=== PATIENT | male | born 1955 | race Hispanic/Latino ===

== ENCOUNTER 2018-05-09 11:16 | Inpatient (IN) | payer SELFPAY ==
[2018-05-09] MEDS ORDERED: Lorazepam 2 MG/ML VIAL ONE (11:18)
[2018-05-09 12:01] LABS: Band 28 % (5-11); Hemoglobin 13.4 g/dL (14.0-18.0); Lymphocytes 6 % (21-51); MDiff Complete? YES; Mean Corpuscular HGB CONC 32.2 g/dL (32.0-36.0); Mean Corpuscular Hemoglobin 29.8 pg (27.0-31.0); Mean Corpuscular Volume 92.4 fL (78.0-98.0); Mean Platelet Volume 8.3 fL (7.4-10.4); Monocytes 2 % (0-10); Neutrophil 63 % (42-75); Platelet Count 145 thou/uL (130-400); RBC Distribution Width 13.9 % (11.5-14.5); Red Blood Cell (RBC) Count 4.49 mill/uL (4.70-6.10); Vacuoles SLIGHT; White Blood Cell (WBC) Count 5.6 thou/uL (4.8-10.8)
[2018-05-09 12:13] LABS: ALT (SGPT) 23 U/L (8-55); AST (SGOT) 38 U/L (5-34); Albumin 3.7 g/dL (3.4-4.8); Alkaline Phosphatase 204 U/L (40-150); Anion Gap 22 mmol/L (10-20); BUN (Urea Nitrogen) 16 mg/dL (8.4-25.7); Bilirubin, Total 2.5 mg/dL (0.2-1.2); Calc. Creatinine Clearance 0 mL/min (70-130); Calcium 8.6 mg/dL (7.8-10.44); Carbon Dioxide 18 mmol/L (23-31); Chloride 98 mmol/L (98-107); Estimated GFR-MDRD 57; Globulin 3.9 g/dL (2.4-3.5); Glucose 219 mg/dL (80-115); Potassium 5.2 mmol/L (3.5-5.1); Protein, Total 7.6 g/dL (5.8-8.1); Sodium 133 mmol/L (136-145)
--- NOTE | 2018-05-09 12:28 | RAD ---
CHEST 1 VIEW: Date: 05/09/18 HISTORY: Tremors, heavy alcohol use, elevated blood sugar. COMPARISON: 01/18/16. FINDINGS: Postop midline sternotomy. Bilateral vascular congestion with some interstitial changes in the perihi lar regions concerning for mild edema. No new confluent process. IMPRESSION: Mild cardiomegaly with bilateral vascular congestion and minimal interstitial edema. No confluent lob ar pneumonia. POS: H
[2018-05-09] MEDS ORDERED: Acetaminophen 500 MG TAB ONE (12:39)
[2018-05-09 12:51] LABS: Bilirubin Small (Negative); Blood, Urine Moderate (Negative); Clarity CLOUDY (Clear); Glucose, Urine (Dipstick) Negative (Negative); Leukocyte Large (Negative); Nitrite Negative (Negative); Protein, Urine (Dipstick) 100 mg/dL (Neg-Trace); pH, Urine 5.5 (5.0-9.0)
[2018-05-09 12:53] LABS: Bacteria/HPF 4+ HPF (None Seen); Hyaline Casts/LPF 4-6 HYALINE CAST LPF (0-3 Hyaline); Pathc Cast-AUWi Flag 1.66 (0-2.49); Squamous Epithelial None Seen HPF (0-3)
[2018-05-09] MEDS ORDERED: cefTRIAXone\\ROCEPHIN 1 GM VIAL ONE (13:21)
[2018-05-09] MEDS ORDERED: Ketorolac Tromethamine 30 MG/ML VIAL ONE (13:21)
[2018-05-09] MEDS ORDERED: Magnesium 2 GM/50 ML BAG (IN WATER) ONE (13:57)
[2018-05-09] MEDS ORDERED: Folic Acid 1 MG TAB PO SCH (14:15)
[2018-05-09] MEDS ORDERED: Folic Acid 1 MG TAB ONE (15:15)
[2018-05-09 15:47] LABS: Lactic Acid 1.3 mmol/L (0.5-2.2)
[2018-05-09] MEDS ORDERED: Diazepam 5 MG TAB ONE ×2 (16:20→17:36)
[2018-05-09] MEDS ORDERED: Thiamine HCl 200 MG/2 ML VIAL IM SCH (17:00)
[2018-05-09 18:44] VITALS: BMI 23.8
[2018-05-09] MEDS ORDERED: Sodium Chloride 0.9% 1,000 ML IV SCH (19:00)
[2018-05-09] MEDS ORDERED: Acetaminophen 325 MG TAB PO PRN (19:01)
[2018-05-09] MEDS ORDERED: Ondansetron ODT 4 MG TAB SL PRN (19:01)
[2018-05-09] MEDS ORDERED: Ondansetron PF 4 MG/2 ML Vial IVP PRN ×2 (19:01→19:22)
[2018-05-09] MEDS ORDERED: Diazepam 5 MG TAB PO PRN (19:02)
--- NOTE | 2018-05-09 19:21 | HP ---
PRIMARY CARE PROVIDER: [facility]. CHIEF COMPLAINT: Tremors and general weakness. HISTORY OF PRESENT ILLNESS: This is a 62-year-old male, who presents to [facility] Emergency Department complaining of less than 24-hour history of tremors and sweating, which began in the early intervention school psychologist hours on the date of admission. The patient states he had been drinking alcohol up to 10 beers when he developed nausea and vomiting approximately 4:00 a.m. on 05/09/2018. The patient became concerned when he had profuse sweating and tremulousness of his upper and lower extremities. The patient denied any recent travel history, family members with similar symptoms, or known prior history of alcohol withdrawal. The patient became concerned due to his symptoms and presented to the emergency room for evaluation. The patient denied any other drug use or exposure history or change to his chronic medication regimen. In the emergency room, the patient underwent general evaluation including screening metabolic survey showing evidence of lactic acidosis as well as questionable urinary tract infection by screening urinalysis. Plasma alcohol level was noted less than 10; however, the patient did receive intravenous normal saline as well as Ativan and magnesium sulfate. The patient also received a thiamin and Toradol as well as acetaminophen. After concerning for potential infectious process, the patient received vancomycin and Rocephin due to suspected urinary tract infection. The patient currently states he is feeling fine and is ready to eat. PAST MEDICAL HISTORY: 1. Diabetes mellitus type 2, poorly controlled. 2. Hypertension. 3. Tobacco abuse. 4. Alcohol abuse. 5. History of TIA. 6. Depression. PAST SURGICAL HISTORY: Status post appendectomy. CURRENT MEDICATIONS: Based on previous electronic medical record review; 1. Enteric-coated aspirin 325 mg p.o. daily. 2. Coreg 3.125 mg p.o. b.i.d. 3. Metformin 1000 mg p.o. b.i.d. 4. Zocor 40 mg p.o. at bedtime. ALLERGIES: NO KNOWN DRUG ALLERGIES. FAMILY HISTORY: Positive for coronary artery disease and hypertension. SOCIAL HISTORY: The patient is accompanied by his significant other in the emergency room. Smokes up to a pack of cigarettes daily. Alcohol use up to 12 pack every 2 to 3 days. No illicit drug use. Last alcohol intake within the last 24 hours. REVIEW OF SYSTEMS: CONSTITUTIONAL: Negative for weight loss or gain, ability to conduct usual activities. SKIN: Negative for rash, itching. EYES: Negative for double vision, pain. ENT/MOUTH: Negative for nose bleeding, neck stiffness, pain, tenderness. CARDIOVASCULAR: Negative for palpitations, dyspnea on exertion, orthopnea. RESPIRATORY: Negative for shortness of breath, wheezing, cough, hemoptysis, fever or night sweats. GASTROINTESTINAL: Negative for poor appetite, abdominal pain, heartburn, nausea, vomiting, constipation, or diarrhea. GENITOURINARY: Negative for urgency, frequency, dysuria, nocturia. MUSCULOSKELETAL: Negative for pain, swelling. NEUROLOGIC/PSYCHIATRIC: Negative for anxiety, depression. ALLERGY/IMMUNOLOGIC: Negative for skin rash, bleeding tendency. Otherwise, negative except as stated per HPI. PHYSICAL EXAMINATION: VITAL SIGNS: On admission, blood pressure 98/66, pulse 90, respiratory rate 22, temperature 98 degrees Fahrenheit, T-max of 102.6 degrees Fahrenheit, and O2 saturation 93% on room air. GENERAL APPEARANCE: This is a 62-year-old male, alert and oriented x3, pleasant, in no acute distress. HEENT: Pupils are equal, round, reactive to light and accommodation. Extraocular muscles are intact. No scleral icterus. Mild conjunctival injection. Nares patent. OP is clear. Teeth in fair repair. NECK: Supple. No cervical adenopathy. No thyromegaly. No carotid bruits. No JVD appreciated. Cervical spine with full active and passive range of motion. No meningeal signs appreciated. CHEST: Lungs are clear to auscultation bilaterally. CARDIOVASCULAR: S1 and S2 without noted murmur, rub, or gallop. ABDOMEN: Obese, soft, and mild tenderness to palpation in the upper quadrants. No palpable mass. No rebound or guarding noted. Bowel sounds are positive in all 4 quadrants. EXTREMITIES: Warm and dry with fair turgor. No clubbing, cyanosis, or asymmetric edema appreciated. Pulses are palpable distally at the dorsalis pedis, posterior tibial, and popliteal arteries bilaterally. Capillary refill less than 2 seconds. NEUROLOGIC: Cranial nerves 2 through 12 are grossly intact. No focal or lateralizing signs appreciated. PERTINENT LABORATORY DATA AND X-RAY FINDINGS: Sodium 133, potassium 5.2, chloride 98, CO2 of 18, BUN 16, creatinine 1.27, estimated GFR 57, glucose 219. Lactic acid level ranged between 1.3 to 8.7. Total bilirubin 2.5, AST 38, ALT 23, alkaline phosphatase 204. CBC showed a white blood cell count of 5.6, hemoglobin 13.4, hematocrit 41.5, platelet count 145, with 63% neutrophils, 28% bands. Urinalysis showed moderate blood, trace ketones, large leukocyte esterase with greater than 50 to [id number]-count wbc's per high-power field. Plasma alcohol level less than 10. Influenza A and B antigen dated 05/09/2018, negative. Portable chest x-ray dated 05/09/2018, by my interpretation shows bilateral vascular prominence. EKG dated 05/09/2018, by my interpretation shows sinus tachycardia, heart rates in the 140s. Attenuated R-waves noted in the precordial leads. Left axis deviation noted. Baseline artifact noted. ASSESSMENT AND PLAN: 1. Acute alcohol abuse. The patient will be admitted to the telemetry unit. We will continue to monitor for withdrawal symptoms. Ativan 1 mg IV q.6 hours p.r.n. withdrawal symptoms. Continue banana bag at 125 mL/h. Alcohol abstinence resources. 2. Urinary tract infection. Suspected after review of the initial urinalysis. Continue Rocephin 2 g IV q.24 hours. Await final urine culture. 3. Hypotension. Suspect secondary to volume depletion. Continue IV fluids with normal saline at 125 mL/h. Encourage increased free water intake orally. 4. Acute kidney injury. Suspect secondary to volume depletion. We will continue IV fluids as outlined previously. Avoid nephrotoxic agents and limit contrast exposure. Repeat creatinine in the a.m. 5. Hyperkalemia, mild. We will continue IV fluids as outlined previously. Avoid potassium chloride supplementation. Repeat potassium level in the a.m. 6. Diabetes mellitus, type 2. Appears uncontrolled currently. Insulin sliding scale for reflexive coverage. Accu-Cheks a.c. and at bedtime. ADA diet. Check A1c level in the a.m. 7. Prophylaxis. SCDs while in bed. Pepcid 20 mg p.o. b.i.d.. 8. Code status is full. Surrogate medical decision maker is the patient's spouse. Job ID: [id number]
[2018-05-09] MEDS ORDERED: Dextrose 5% in Water 1,000 ML IV PRN (19:22)
[2018-05-09] MEDS ORDERED: HumaLOG 300 UNITS/3 ML VIAL SC PRN ×2 (19:22)
[2018-05-09] MEDS ORDERED: Lorazepam 2 MG/ML VIAL SLOW IVP PRN (19:22)
[2018-05-09] MEDS ORDERED: Acetaminophen 500 MG TAB PO PRN (19:22)
[2018-05-09] MEDS ORDERED: Ibuprofen 200 MG TAB PO PRN (19:22)
[2018-05-09] MEDS ORDERED: hydrALAZINE 20 MG/ML VIAL SLOW IVP PRN (19:22)
[2018-05-09] MEDS ORDERED: cloNIDine 0.1 MG TAB PO PRN (19:22)
[2018-05-09] MEDS ORDERED: Dextrose 50% Abboject 50 ML SYRINGE SLOW IVP PRN (19:22)
[2018-05-09] MEDS ORDERED: Ondansetron ODT 4 MG TAB PO PRN (19:22)
[2018-05-09] MEDS ORDERED: Multivitamins, Adult 10 ML, Folic Acid 1 MG, Thiamine HCl 100 MG in Dextrose 5 %-0.45 %... IV SCH (20:00)
[2018-05-09] MEDS: Famotidine 20 MG TAB PO SCH (21:43)
[2018-05-09] MEDS: Nicotine 14 MG PATCH TOP PRN (21:43)
[2018-05-09] MEDS: Sodium Chloride 0.9% 1,000 ML IV SCH (22:20)
[2018-05-10] MEDS ORDERED: Diazepam 5 MG TAB PO PRN (04:00)
[2018-05-10] MEDS: Sodium Chloride 0.9% 1,000 ML IV SCH (05:53)
[2018-05-10 06:23] LABS: ALT (SGPT) 24 U/L (8-55); AST (SGOT) 32 U/L (5-34); Albumin 3.3 g/dL (3.4-4.8); Alkaline Phosphatase 185 U/L (40-150); Anion Gap 15 mmol/L (10-20); BUN (Urea Nitrogen) 24 mg/dL (8.4-25.7); Bilirubin, Total 3.4 mg/dL (0.2-1.2); Calc. Creatinine Clearance 58 mL/min (70-130); Carbon Dioxide 19 mmol/L (23-31); Chloride 100 mmol/L (98-107); Estimated GFR-MDRD 50; Glucose 240 mg/dL (80-115); Magnesium 1.9 mg/dL (1.6-2.6); Phosphorus 2.7 mg/dL (2.3-4.7); Potassium 4.2 mmol/L (3.5-5.1); Protein, Total 6.3 g/dL (5.8-8.1); Sodium 130 mmol/L (136-145)
[2018-05-10 06:41] LABS: Band 12 % (5-11); Hemoglobin 11.8 g/dL (14.0-18.0); Lymphocytes 4 % (21-51); MDiff Complete? YES; Mean Corpuscular HGB CONC 32.4 g/dL (32.0-36.0); Mean Corpuscular Hemoglobin 30.1 pg (27.0-31.0); Mean Corpuscular Volume 92.9 fL (78.0-98.0); Mean Platelet Volume 8.7 fL (7.4-10.4); Monocytes 7 % (0-10); Neutrophil 76 % (42-75); Platelet Count 115 thou/uL (130-400); Platelet Morphology Comment Appears Decreased; RBC Distribution Width 13.9 % (11.5-14.5); Red Blood Cell (RBC) Count 3.93 mill/uL (4.70-6.10); White Blood Cell (WBC) Count 7.3 thou/uL (4.8-10.8)
[2018-05-10 07:17] LABS: Hemoglobin A1c 7.3 % (4.0-6.0)
[2018-05-10] MEDS: Famotidine 20 MG TAB PO SCH ×2 (08:41→20:14)
[2018-05-10] MEDS: Folic Acid 1 MG TAB PO SCH (08:41)
[2018-05-10] MEDS: Thiamine 100 MG TAB PO SCH (08:41)
[2018-05-10] MEDS: Magnesium Oxide 400 MG TAB PO SCH (08:42)
[2018-05-10] MEDS ORDERED: Multivitamin W/ Minerals 1 TAB PO SCH (09:00)
--- NOTE | 2018-05-10 13:19 | PRG ---
DATE OF SERVICE: 05/10/2018 SUBJECTIVE: The patient reports he is feeling better. He is getting up, walking the halls. He is having some anxiety about being in the hospital, walking around seems to help him. Again, reports to me that he only drinks 3 to 4 beers every other day. He has talked to nursing about going outside to smoke, said he may just go outside. He asked me about leaving the hospital to go home and get something and that he would come back. Again, I told no, it will be against our policy to do that. OBJECTIVE: VITAL SIGNS: Temperature is 100.0, pulse 99 to 100, BP 92/54, up to 115/68, O2 saturation 96% on room air. GENERAL APPEARANCE: Age-appropriate male, slightly strange affect, but otherwise no distress. HEENT: No acute lesions. NECK: The patient has significant bilateral JVD. HEART: Regular without murmurs. LUNGS: Clear bilaterally. No wheezes or rales. ABDOMEN: Soft, nontender, and nondistended. No masses. No palpable bladder. EXTREMITIES: Warm and dry without cyanosis, clubbing or edema. LABORATORY DATA: White count 7.3, hemoglobin 11.8, platelets 115, 76% neutrophils, 12% bands. Sodium 130, potassium 4.2, chloride 100, CO2 is 19, BUN 24, creatinine 1.42, glucose 217 up to 252. A1c is 7.3, total bilirubin is 3.4, alkaline phosphatase 185. Blood cultures growing Klebsiella pneumoniae. Urine culture growing Klebsiella or enterobacter. Review of his chest x-ray showed cardiomegaly with some pulmonary edema. IMPRESSION AND PLAN: 1. Urinary tract infection with secondary bacteremia growing Klebsiella. We will continue with Rocephin until we get final cultures. 2. Obstructive uropathy. The patient does report some obstructive symptoms with hesitancy and incomplete voiding. Has nocturia x2. We will consult Urology. Check postvoid residuals. Obtain a PSA. 3. Ischemic cardiomyopathy with evidence of decompensated systolic on chronic heart failure. We will discontinue the patient's IV fluids. Reviewed the patient's records. Based on his cardiomyopathy, pulmonary edema and JVD. The patient did have history of ischemic cardiomyopathy back 2017, had multivessel bypass and at that time had an ejection fraction of about 15% 20%. He has not followed up with anyone since that time. Certainly, need to repeat his echocardiogram to reassess his ejection fraction. If it has not substantially improved following his bypass, he may need a defibrillator. Discussed all this with him. He is going to pursue that course of action. 4. Acute renal insufficiency. Acute renal failure. The patient's creatinine is up to 1.42 with his GFR down to 50. This is above his baseline, which typically runs between 0.7, 0.9. It is worse than it was yesterday, may be secondary to infection or cardiorenal syndrome. We will continue to follow. 5. Hyponatremia. Again, suspect this is likely due to some decompensation of his heart failure and possibly some beer potomania. We will continue to follow. If it does not improve on his renal function, may need to get Nephrology involved. 6. Diabetes mellitus. The patient's A1c is actually in pretty good range. However, his current blood sugars are fairly high, likely secondary to acute infection. May need to increase some sliding scale insulin. 7. Alcohol abuse. The patient has a history of alcohol abuse. He presently reports significantly less. However, he does continue to appear bit anxious, which may be from alcohol or tobacco cessation. He is on Tevin protocol and has benzodiazepines as needed. 8. Tobacco abuse. Nicotine patch has been ordered. 9. Hypotension. The patient's blood pressure is borderline low. Holding off on adding any Flomax for obstructive uropathy symptoms. We will need to stop his fluids because he is demonstrating some evidence of decompensation in fact borderline in need of some diuresis. However, I am holding off on that given his pressures. 10. Hyperkalemia, resolved. Job ID: [id number]
[2018-05-10] MEDS: cefTRIAXone\\ROCEPHIN 2 GM in Sodium Chloride 0.9% 100 ML IVPB SCH (15:52)
--- NOTE | 2018-05-10 16:59 | CT ---
ABDOMEN AND PELVIS CT NONCONTRAST: Date: 05/10/18 INDICATION: UTI. FINDINGS: There is punctate bilateral nephrolithiasis. No hydronephrosis or obstructive uropathy. There is herrera ed thickening of the urinary bladder wall with perivesicular fat stranding. Mild subpleural interstit ial prominence of each visualized lung base is present. There is wall prominence and hyperdensity of the gallbladder. Mild intra-abdominal ascites is seen. There is displacement of intimal calcium seen at the lower abdominal aorta which may be on the basis of a chronic dissection. There are numerous co lonic diverticula. Osseous structures reveal degenerative changes. There is prominent volume of the p rostate gland with calcification. IMPRESSION: 1. Prominent urinary bladder wall thickening and perivesicular stranding indicating cystitis. This m ay be infectious. Correlate with urinary laboratory values. 2. CT findings which may be related to cholecystitis. Recommend gallbladder ultrasound. 3. Mid abdominal ascites. 4. Colonic diverticulosis. POS: INÉS
[2018-05-10] MEDS: Tamsulosin HCl 0.4 MG CAP PO SCH (20:14)
[2018-05-10] MEDS: Nicotine 14 MG PATCH TOP PRN (20:21)
--- NOTE | 2018-05-11 02:11 | CON ---
DATE OF CONSULTATION: 05/10/2018 REASON FOR CONSULTATION: Consultation was requested for urinary tract infection , bacteremia. HISTORY OF PRESENT ILLNESS: The patient is a 62-year-old male who was admitted with concern for some alcohol withdrawals, having drank less than he normally does in the more recent days, but also complaining of possible chills or at least tremors and sweating with nausea and vomiting. Normally, he has frequency q.2 to 3 hours and nocturia times x2 to 3. He has a slow stream with incomplete emptying and this has been going on for about 6 months. He has never had retention, hematuria, kidney stones, or urinary tract infections before. He denied any cloudy, burning, or malodorous urine. He is uncircumcised and denies any concern with traction. PAST MEDICAL HISTORY: Significant for diabetes diagnosed in 2013, hypertension, depression, TIA in the 80s and he denies any drug use at that time, alcohol abuse, coronary artery disease. PAST SURGICAL HISTORY: Includes appendectomy and CABG in 2017. He has not seen his metal hardener in at least 2 years. MEDICATIONS: Include; 1. Aspirin 325 mg. 2. Coreg. 3. Metformin. 4. Zocor. Of note, he takes aspirin when he remembers. ALLERGIES: NONE. REVIEW OF SYSTEMS: Reveals he has never had a colonoscopy. He has not had any diarrhea or constipation. No shortness of breath. No chest pain. No cough. No numbness, tingling, or reflux. He had a bowel movement just today without concern. He has not had prior screening for PSA or prostate cancer. SOCIAL HISTORY: Reveals [id number] smoking; There are reports of a 12pk in 3d as well as 3 to 4 beers every other day; thed latter is what he confirmed to me. No IV drugs. FAMILY HISTORY: Coronary artery disease and hypertension. Mom of Alzheimer at 83. Dad of a heart attack at 51. Brother in his 40s of diabetes complications. PHYSICAL EXAMINATION: GENERAL: He is alert and oriented, very jovial, joking throughout the exam and history. VITAL SIGNS: T-max 99.9, currently 98.3; heart rate in the 110s; blood pressure 139/80; saturating 96% to 98% on room air. HEENT: He has no obvious JVD or scleral icterus. No jaundice. He does have a CABG scar on his chest. HEART: Regular rhythm, but tachycardic without any murmurs, gallops, or rubs. LUNGS: Clear to auscultation bilaterally. ABDOMEN: Soft, nondistended, nontender. No obvious hernias. Testes were descended bilaterally without masses. Phallus is uncircumcised without lesions, easily retracted and without meatal stenosis. The digital rectal exam was deferred. He had no significant lower extremity edema. A Spring catheter was then placed under sterile conditions with a 16 Coude for minimal return. LABORATORY DATA: CBC reveals a mild anemia at 11.8 and 36.5, platelets down to 115. His BUN and creatinine are 24 and 1.42 with the creatinine having risen from 1.27, baseline is 0.9 back in 2016. PSA is 11.28. BNP is 2775. Urinalysis revealed too numerous to count wbc's, 4 to 6 rbc's, 4+ bacteria, and 0 to 3 squamous cells. Culture is already growing Klebsiella or enterobacter. Blood cultures are already growing gram-negative rods, possibly Klebsiella. There is no upper tract imaging. ASSESSMENT: We have a 62-year-old male with bacteremia from urinary tract infection without any upper tract studies. He now has maximum drainage of his urinary system-- assuming he does not have any upper tract obstruction. For this reason, I had ordered a CAT scan without contrast (based on his rising creatinine). We reviewed this, benign prostatic hyperplasia and starting tamsulosin for this based on his blood pressure being improved. We also reviewed how he does deserve a workup for the urinary tract infection to look at the kidneys as well as to look in the bladder. We will do the latter as an outpatient. We will do the upper tract imaging now. Start tamsulosin and keep the Spring in until both his creatinine bry and we are not concerned about infection and have a definitive organism with appropriate antibiotic coverage. We reviewed all of this in detail. All questions were answered. Job ID: [id number] [facility]
--- NOTE | 2018-05-11 06:44 | ULT ---
GALLBLADDER ULTRASOUND: INDICATIONS: Pain. COMPARISON: Reference made to preceding noncontrast CT examination from the previous day. FINDINGS: There is prominent abnormal wall thickening of the gallbladder, which contains internal increased ech ogenicity. There is also ring-down artifact from the gallbladder wall. Wall thickening is measured to approximately 6 mm. No focal hepatic lesion. There is mild perihepatic ascites seen. The common duct is normal in caliber at 4 mm. IMPRESSION: 1. Marked abnormal wall thickening of the gallbladder, as well as internal increased echogenicity of the gallbladder and component of ring-down artifact. Findings may relate to adenomyomatosis. A sup erimposed cholecystitis is not excluded. Recommend clinical correlation in this regard. 2. Mild abdominal ascites. POS: NWK
[2018-05-11] MEDS: Famotidine 20 MG TAB PO SCH ×2 (08:36→20:26)
[2018-05-11] MEDS: Tamsulosin HCl 0.4 MG CAP PO SCH ×2 (08:37→20:26)
[2018-05-11] MEDS: Thiamine 100 MG TAB PO SCH (08:37)
[2018-05-11] MEDS: Magnesium Oxide 400 MG TAB PO SCH (08:38)
[2018-05-11] MEDS: Folic Acid 1 MG TAB PO SCH (08:38)
[2018-05-11 11:50] LABS: Anion Gap 15 mmol/L (10-20); BUN (Urea Nitrogen) 22 mg/dL (8.4-25.7); Calc. Creatinine Clearance 73 mL/min (70-130); Calcium 8.5 mg/dL (7.8-10.44); Carbon Dioxide 19 mmol/L (23-31); Chloride 104 mmol/L (98-107); Estimated GFR-MDRD 66; Glucose 202 mg/dL (80-115); Potassium 4.2 mmol/L (3.5-5.1); Sodium 134 mmol/L (136-145)
[2018-05-11] MEDS: cefTRIAXone\\ROCEPHIN 2 GM in Sodium Chloride 0.9% 100 ML IVPB SCH (12:29)
--- NOTE | 2018-05-11 17:16 | PRG ---
DATE OF SERVICE: 05/11/2018 SUBJECTIVE: The patient says he is feeling okay. He has been getting up and walking around without any significant problems. He states he almost removed the Spring catheter himself last night because it was causing him discomfort. OBJECTIVE: VITAL SIGNS: T-max 99.8, pulse 100, respirations 18, O2 saturation 95% on room air, BP 106/60. GENERAL APPEARANCE: Age-appropriate male, in no distress. He is awake and alert. HEART: Borderline tachy. No murmurs. LUNGS: Clear bilaterally. ABDOMEN: Soft, nontender, and nondistended. EXTREMITIES: No edema, cyanosis, or clubbing. LABORATORY DATA: Sodium 134, potassium 4.2, chloride 104, CO2 of 19, BUN 22, creatinine 1.12, glucose 122 to 223. Urine and blood cultures both growing Klebsiella pneumoniae, which are basically pansensitive with the exception of nitrofurantoin. His abdominal CT from yesterday showed thickened bladder with some perivesicular stranding indicating cystitis and potential evidence of cholecystitis being that the gallbladder wall is prominent and hyperdense. There are also some mild abdominal ascites and colonic diverticulosis. Followup ultrasound of the gallbladder showed abnormal wall thickening of the gallbladder as well as internal increased echogenicity of the gallbladder and component of "ring down artifact", suggested this may relate to adenomyomatosis or possibility of cholecystitis. IMPRESSION AND PLAN: 1. Urinary tract infection with Klebsiella pneumoniae. Right now, continue with another day of IV Rocephin. 2. Obstructive uropathy with thickened bladder wall, likely secondary to chronic obstruction, possibly due to infectious etiology. Continue with the IV Rocephin. The patient has a Spring catheter in place. He has been started on some Flomax. He will need further evaluation as an outpatient. Followed by Urology. 3. Acute renal insufficiency, substantially improved with drainage of the bladder. His numbers are back down to the normal range. 4. Hyponatremia, improved. 5. Diabetes mellitus. Blood sugars are adequate. 6. History of alcohol abuse. Continues to appear a little bit anxious, but does not appear to be in significant withdrawal, although heart rate is borderline. 7. Tobacco abuse. Nicotine patch was added. 8. Hypotension, improved. 9. Hyperkalemia, resolved. 10. Cardiomyopathy. This patient has a history of ischemic cardiomyopathy, status post bypass. He had evidence of decompensated failure on presentation with JVD. His exam would suggest that it is better now, and his fluids have been stopped. Repeat echocardiogram has been obtained, report is still pending. His ejection fraction was around 15% to 20% previously. If it remains at low, we will need to have a consultation with Cardiology for possible defibrillator. The patient is aware and amenable. Job ID: [id number]
[2018-05-12] MEDS: Famotidine 20 MG TAB PO SCH (09:07)
[2018-05-12] MEDS: Folic Acid 1 MG TAB PO SCH (09:07)
[2018-05-12] MEDS: Thiamine 100 MG TAB PO SCH (09:08)
[2018-05-12] MEDS: Tamsulosin HCl 0.4 MG CAP PO SCH (09:08)
[2018-05-12] MEDS: Magnesium Oxide 400 MG TAB PO SCH (09:08)
[2018-05-12 13:07] VITALS: BP 107/59; TEMP 98.2
[2018-05-12] MEDS: cefTRIAXone\\ROCEPHIN 2 GM in Sodium Chloride 0.9% 100 ML IVPB SCH (15:11)
--- NOTE | 2018-05-12 15:59 | PRG ---
DATE OF SERVICE: 05/12/2018 SUBJECTIVE: The catheter came out at about 2:00 a.m. He voided once in a shower. He is little bit confused about this, initially saying yes and then no and then yes again and ultimately that was not bloody and he did feel empty. He has no pain or concerns currently. OBJECTIVE: VITAL SIGNS: He is afebrile and his vital signs are stable. He now will record his urine output in a urinal so this could be monitored and we will check for residual. LABORATORY DATA: No new labs. We reviewed how he needs to follow up in the office for cystoscopy as well as taking the new tamsulosin twice a day and antibiotics for four weeks, anything that is sensitive to Klebsiella pneumoniae. All questions were answered. I left a prescription for tamsulosin in the chart. Job ID: [id number]
--- NOTE | 2018-05-12 16:21 | PRG ---
DATE OF SERVICE: 05/11/2018 SUBJECTIVE: I had the patient get a CT scan to check his upper tracts. The bladder was slightly thickened with an enlarged prostate and this was consistent with cystitis and the prostate had some calcifications, but otherwise there were no hydronephrosis, stones, or masses. I reviewed this with him in detail. There was some concern about the gallbladder and an ultrasound recommended, so I had this done as well. In talking to the patient, he denies any right upper quadrant pain nor pain after eating greasy or spicy foods. The ultrasound was done and was consistent with possible adenomyomatosis, which is not concerning if there are no clinical symptoms. There was also mild ascites noted. We reviewed all this in detail. PHYSICAL EXAMINATION: VITAL SIGNS: He has been afebrile with vital signs stable. ABDOMEN: Soft, nondistended, nontender. No right upper quadrant tenderness. No Ryder sign. LABORATORY DATA: Creatinine down to 1.12. Urine and blood cultures are growing Klebsiella pneumoniae, sensitive to most all antibiotics. A/P: I reviewed with him in detail of the need to continue tamsulosin twice a day and to follow up as an outpatient for cystoscopy to rule out any stricture or nidus as source for infection. He would like the catheter to be out and so we discussed when to remove this and we will anticipate that we will get it out overnight, because his creatinine has normalized and we have sensitivities from his culture. Job ID: [id number] MTDD
== END 2018-05-12 14:57 | disposition left against medical advice (07) | DRG 690 ==
LOC: ERS 11:16 → ERHOLD 13:46 → 2NO 19:19
PROVIDERS: ADMIT Family Medicine; ATTEND Family Medicine
PROC: HZ2ZZZZ Detoxification Services for Substance Abuse Treatment (ICD-10-PCS; principal; 2018-05-09)
DX: N39.0 Urinary tract infection, site not specified (principal); N17.9 Acute kidney failure, unspecified; E87.1 Hypo-osmolality and hyponatremia; E11.9 Type 2 diabetes mellitus without complications; I10 Essential (primary) hypertension; F32.9 Major depressive disorder, single episode, unspecified; F10.10 Alcohol abuse, uncomplicated; I95.9 Hypotension, unspecified; E87.5 Hyperkalemia; B96.1 Klebsiella pneumoniae [K. pneumoniae] as the cause of diseases classified elsewhere; N13.9 Obstructive and reflux uropathy, unspecified; I25.5 Ischemic cardiomyopathy; F17.210 Nicotine dependence, cigarettes, uncomplicated; Z86.73 Personal history of transient ischemic attack (TIA), and cerebral infarction without residual deficits; Z90.49 Acquired absence of other specified parts of digestive tract; Z79.82 Long term (current) use of aspirin; Z79.84 Long term (current) use of oral hypoglycemic drugs; Z71.41 Alcohol abuse counseling and surveillance of alcoholic
CPT/HCPCS: 36415; 36416; 51701; 71045; 74176; 76705; 80048; 80053; 80307; 81003; 81015; 83036; 83605; 83735; 83880; 84100; 84153; 85007; 85025; 85027; 87040; 87077; 87086; 87149; 87186; 87804; 93005; 93306; 96361; 96365; 96366; 96367; 96372; 96375; J0696; J1885; J2060; J3370; J3411; J3475; J7042; J7050

== ENCOUNTER 2022-06-22 08:41 | Observation (INO) | payer OTHER, SELFPAY ==
[2022-06-22] MEDS ORDERED: Nitroglycerin 0.4 MG TAB 1 EACH ONE (09:18)
[2022-06-22 09:39] LABS: #Eosinphils 0.2 thou/uL (0.0-0.7); #Lymphocytes 0.9 thou/uL (1.20-3.40); #Monocytes 0.5 thou/uL (0.11-0.59); #Neutrophils 4.8 thou/uL (1.40-6.50); %Basophils 0.6 % (0.0-1.0); %Eosinophils 2.4 % (0.0-10.0); %Lymphocytes 13.5 % (21.0-51.0); %Monocytes 7.7 % (0.0-10.0); %Neutrophils 75.8 % (42.0-75.0); Hemoglobin 12.7 g/dL (14.0-18.0); Mean Corpuscular HGB CONC 33.8 g/dL (32.0-36.0); Mean Corpuscular Hemoglobin 31.1 pg (27.0-31.0); Mean Corpuscular Volume 92.1 fl (78.0-98.0); Mean Platelet Volume 8.5 fL (7.4-10.4); Platelet Count 150 10x3/uL (130-400); RBC Distribution Width 13.3 % (11.5-14.5); Red Blood Cell (RBC) Count 4.07 mill/uL (4.70-6.10); White Blood Cell (WBC) Count 6.3 10x3/uL (4.8-10.8)
[2022-06-22 10:11] LABS: ALT (SGPT) 20 U/L (8-55); AST (SGOT) 18 U/L (5-34); Albumin 3.9 g/dL (3.4-4.8); Alkaline Phosphatase 80 U/L (40-110); Anion Gap 13 mmol/L (10-20); BUN (Urea Nitrogen) 21 mg/dL (8.4-25.7); Bilirubin, Total 0.5 mg/dL (0.2-1.2); Calc. Creatinine Clearance 0 mL/min (70-130); Calcium 8.8 mg/dL (7.8-10.44); Carbon Dioxide 26 mmol/L (23-31); Chloride 102 mmol/L (98-107); Estimated GFR 55; Globulin 2.9 g/dL (2.4-3.5); Glucose 191 mg/dL (80-115); Lipase 16 U/L (8-78); Potassium 4.9 mmol/L (3.5-5.1); Protein, Total 6.8 g/dL (5.8-8.1); Sodium 136 mmol/L (136-145)
[2022-06-22] MEDS ORDERED: Nitroglycerin 0.4 MG TAB (25 Tab Bottle) SL PRN (11:27)
[2022-06-22] MEDS ORDERED: Electrolyte Replacement Protocol 1 EACH FS SCH (11:30)
[2022-06-22] MEDS ORDERED: Dextrose 50% Abboject 50 ML SYRINGE SLOW IVP PRN (11:37)
[2022-06-22] MEDS ORDERED: Insulin Regular 300 UNITS/3 ML VIAL SC PRN ×2 (11:37)
[2022-06-22] MEDS ORDERED: Dextrose 5% in Water 1,000 ML IV PRN (11:37)
[2022-06-22] MEDS ORDERED: Senokot S 8.6-50 MG TAB PO PRN (11:38)
[2022-06-22] MEDS ORDERED: Ondansetron PF 4 MG/2 ML Vial IVP PRN (11:38)
[2022-06-22] MEDS ORDERED: Ondansetron ODT 4 MG TAB PO PRN (11:38)
[2022-06-22] MEDS ORDERED: Calcium Carbonate 500 MG ChewTAB PO PRN (11:38)
[2022-06-22] MEDS ORDERED: Acetaminophen 325 MG TAB PO PRN (11:38)
[2022-06-22] MEDS ORDERED: Lorazepam 0.5 MG TAB PO PRN (11:40)
[2022-06-22] MEDS ORDERED: Aspirin 325 mg Enteric Coated Tablet PO SCH (11:45)
[2022-06-22] MEDS: Carvedilol 3.125 MG TAB PO SCH (18:08)
[2022-06-22] MEDS: Famotidine 20 MG TAB PO SCH (20:20)
[2022-06-22] MEDS: Heparin 5,000 UNITS/ML VIAL SC SCH (20:21)
[2022-06-22] MEDS ORDERED: Multivit, Therapeutic 1 TAB PO SCH (21:00)
[2022-06-22] MEDS ORDERED: Thiamine 100 MG TAB PO SCH (21:00)
[2022-06-22] MEDS ORDERED: Folic Acid 1 MG TAB PO SCH (21:00)
[2022-06-23 05:48] LABS: Anion Gap 12 mmol/L (10-20); BUN (Urea Nitrogen) 22 mg/dL (8.4-25.7); Calc. Creatinine Clearance 57 mL/min (70-130); Calcium 8.5 mg/dL (7.8-10.44); Carbon Dioxide 25 mmol/L (23-31); Cardiac Risk 4.9 (Less than 4.5); Chloride 104 mmol/L (98-107); Cholesterol 187 mg/dl (< 200 Desired); Estimated GFR 61; Glucose 134 mg/dL (80-115); HDL Cholesterol 38 mg/dL (>60 Neg Risk); LDL Cholesterol, Calculated 99 mg/dL; Potassium 4.2 mmol/L (3.5-5.1); Sodium 137 mmol/L (136-145); Triglycerides 252 mg/dL (Less than 150)
[2022-06-23] MEDS ORDERED: Magnesium 2 GM/50 ML(in water) 2 GM in Premix Bag 1 BAG IVPB SCH (08:00)
[2022-06-23 08:36] VITALS: TEMP 97.5
[2022-06-23] MEDS: Famotidine 20 MG TAB PO SCH (08:37)
[2022-06-23] MEDS: Carvedilol 3.125 MG TAB PO SCH (08:37)
[2022-06-23] MEDS: Heparin 5,000 UNITS/ML VIAL SC SCH (08:38)
[2022-06-23] MEDS ORDERED: Regadenoson 0.4 MG/5 ML SYRINGE ONE (08:42)
[2022-06-23] MEDS ORDERED: Furosemide 20 MG TAB PO SCH (09:00)
[2022-06-23] MEDS ORDERED: Aspirin 325 mg Enteric Coated Tablet PO SCH (09:00)
[2022-06-23] MEDS ORDERED: Losartan 25 MG TAB PO SCH (09:00)
[2022-06-23] MEDS ORDERED: Aspirin 81 mg Enteric Coated Tablet PO SCH (09:00)
[2022-06-23 11:40] VITALS: BMI 22.4
[2022-06-23 12:40] VITALS: BP 163/74
[2022-06-23] MEDS ORDERED: Atorvastatin Calcium 40 MG TAB PO SCH (21:00)
== END 2022-06-23 17:42 ==
LOC: ERS 08:41 → 2NO 10:32 → EEVIPCON 11:00 → ERHOLD 11:00 → 2NO 17:26
PROVIDERS: ADMIT Internal Medicine; ATTEND Internal Medicine
DX: R07.2 Precordial pain (principal); I25.5 Ischemic cardiomyopathy; I13.0 Hypertensive heart and chronic kidney disease with heart failure and stage 1 through stage 4 chronic kidney disease, or unspecified chronic kidney disease; E11.22 Type 2 diabetes mellitus with diabetic chronic kidney disease; N18.30 Chronic kidney disease, stage 3 unspecified; I50.22 Chronic systolic (congestive) heart failure; I25.10 Atherosclerotic heart disease of native coronary artery without angina pectoris; F10.21 Alcohol dependence, in remission; I08.0 Rheumatic disorders of both mitral and aortic valves; Z86.73 Personal history of transient ischemic attack (TIA), and cerebral infarction without residual deficits; Z87.891 Personal history of nicotine dependence; Z79.899 Other long term (current) drug therapy; Z95.1 Presence of aortocoronary bypass graft
CPT/HCPCS: 36415; 36416; 71045; 78452; 80048; 80053; 80061; 83690; 83735; 83880; 84443; 84484; 85025; 93005; 93017; 93306; 94760; A9500; G0378; J1644; J1815; J2785; J3475

== ENCOUNTER 2022-12-16 14:29 | Observation (INO) | payer OTHER, SELFPAY ==
[2022-12-16 15:46] LABS: #Eosinphils 0.2 thou/uL (0.0-0.7); #Monocytes 0.4 thou/uL (0.11-0.59); #Neutrophils 4.5 thou/uL (1.40-6.50); %Basophils 0.7 % (0.0-1.0); %Eosinophils 3.9 % (0.0-10.0); %Lymphocytes 15.5 % (21.0-51.0); %Monocytes 6.4 % (0.0-10.0); %Neutrophils 73.2 % (42.0-75.0); Hematocrit 34.9 % (42.0-52.0); Hemoglobin 11.9 g/dL (14.0-18.0); Mean Corpuscular HGB CONC 34.1 g/dL (32.0-36.0); Mean Corpuscular Hemoglobin 30.6 pg (27.0-31.0); Mean Corpuscular Volume 89.7 fl (78.0-98.0); Mean Platelet Volume 11.4 fL (7.4-10.4); Platelet Count 180 10x3/uL (130-400); RBC Distribution Width 13.2 % (11.5-14.5); Red Blood Cell (RBC) Count 3.89 mill/uL (4.70-6.10); White Blood Cell (WBC) Count 6.1 10x3/uL (4.8-10.8)
[2022-12-16 16:08] LABS: ALT (SGPT) 14 U/L (8-55); AST (SGOT) 18 U/L (5-34); Albumin 4.7 g/dL (3.4-4.8); Alkaline Phosphatase 115 U/L (40-110); Anion Gap 15 mmol/L (10-20); BUN (Urea Nitrogen) 24 mg/dL (8.4-25.7); Bilirubin, Total 0.5 mg/dL (0.2-1.2); Calc. Creatinine Clearance 0 mL/min (70-130); Calcium 9.2 mg/dL (7.8-10.44); Carbon Dioxide 27 mmol/L (23-31); Chloride 98 mmol/L (98-107); Estimated GFR 43; Globulin 2.7 g/dL (2.4-3.5); Glucose 391 mg/dL (80-115); Lipase 12 U/L (8-78); Potassium 4.3 mmol/L (3.5-5.1); Protein, Total 7.4 g/dL (5.8-8.1); Sodium 136 mmol/L (136-145)
[2022-12-16 16:12] LABS: Troponin I 0.057 ng/mL (< 0.028)
[2022-12-16] MEDS ORDERED: Aspirin Chewable 81 MG TAB ONE (17:33)
[2022-12-16] MEDS ORDERED: Ondansetron ODT 4 MG TAB PO PRN (18:14)
[2022-12-16] MEDS ORDERED: Calcium Carbonate 500 MG ChewTAB PO PRN (18:14)
[2022-12-16] MEDS ORDERED: Glucagon 1 MG/ML KIT IM PRN (18:14)
[2022-12-16] MEDS ORDERED: HumaLOG 300 UNITS/3 ML VIAL SC PRN (18:14)
[2022-12-16] MEDS ORDERED: Nitroglycerin 0.4 MG TAB (25 Tab Bottle) SL PRN (18:14)
[2022-12-16] MEDS ORDERED: Dextrose 50% Abboject 50 ML SYRINGE SLOW IVP PRN (18:14)
[2022-12-16] MEDS ORDERED: Dextrose 5% in Water 1,000 ML IV PRN (18:14)
[2022-12-16] MEDS ORDERED: Acetaminophen 325 MG TAB PO PRN (18:14)
[2022-12-16] MEDS ORDERED: Ondansetron PF 4 MG/2 ML Vial IVP PRN (18:14)
[2022-12-16] MEDS ORDERED: Sodium Chloride 0.9% 500 ML IV SCH (21:15)
[2022-12-16 23:42] LABS: Troponin I 0.069 ng/mL (< 0.028)
[2022-12-17 02:23] VITALS: BMI 23.7
[2022-12-17 02:43] LABS: #Basophils 0.1 thou/uL (0.0-0.2); #Eosinphils 0.2 thou/uL (0.0-0.7); #Monocytes 0.6 thou/uL (0.11-0.59); #Neutrophils 5.1 thou/uL (1.40-6.50); %Basophils 0.7 % (0.0-1.0); %Eosinophils 3.3 % (0.0-10.0); %Lymphocytes 19.3 % (21.0-51.0); %Monocytes 7.5 % (0.0-10.0); %Neutrophils 68.8 % (42.0-75.0); Hematocrit 35.4 % (42.0-52.0); Hemoglobin 11.9 g/dL (14.0-18.0); Mean Corpuscular HGB CONC 33.6 g/dL (32.0-36.0); Mean Corpuscular Hemoglobin 30.5 pg (27.0-31.0); Mean Corpuscular Volume 90.8 fl (78.0-98.0); Mean Platelet Volume 11.3 fL (7.4-10.4); Platelet Count 189 10x3/uL (130-400); RBC Distribution Width 13.4 % (11.5-14.5); White Blood Cell (WBC) Count 7.3 10x3/uL (4.8-10.8)
[2022-12-17 03:07] LABS: Hemoglobin A1c 9.9 % (4.0-6.0)
[2022-12-17 04:07] LABS: Anion Gap 17 mmol/L (10-20); BUN (Urea Nitrogen) 24 mg/dL (8.4-25.7); Calc. Creatinine Clearance 47 mL/min (70-130); Carbon Dioxide 23 mmol/L (23-31); Chloride 101 mmol/L (98-107); Cholesterol 132 mg/dl (< 200 Desired); Estimated GFR 47; Glucose 299 mg/dL (80-115); HDL Cholesterol 33 mg/dL (>60 Neg Risk); LDL Cholesterol, Calculated 45 mg/dL; Potassium 3.9 mmol/L (3.5-5.1); Sodium 137 mmol/L (136-145); Triglycerides 271 mg/dL (Less than 150)
[2022-12-17 07:28] LABS: Troponin I 0.086 ng/mL (< 0.028)
[2022-12-17] MEDS: Aspirin Chewable 81 MG TAB PO SCH (08:32)
[2022-12-17] MEDS ORDERED: Carvedilol 3.125 MG TAB PO SCH (17:00)
[2022-12-17] MEDS: HumaLOG 300 UNITS/3 ML VIAL SC PRN (17:48)
[2022-12-17] MEDS: Carvedilol 6.25 MG TAB PO SCH (17:48)
[2022-12-17] MEDS ORDERED: Atorvastatin Calcium 40 MG TAB PO SCH (21:00)
[2022-12-17] MEDS: Sacubitril 49 MG/Valsartan 51 MG TABLET PO SCH (22:01)
[2022-12-18 04:48] LABS: #Basophils 0.1 thou/uL (0.0-0.2); #Eosinphils 0.2 thou/uL (0.0-0.7); #Monocytes 0.5 thou/uL (0.11-0.59); #Neutrophils 4.7 thou/uL (1.40-6.50); %Basophils 0.7 % (0.0-1.0); %Eosinophils 2.9 % (0.0-10.0); %Lymphocytes 19.8 % (21.0-51.0); %Monocytes 7.9 % (0.0-10.0); %Neutrophils 68.4 % (42.0-75.0); Hematocrit 33.7 % (42.0-52.0); Hemoglobin 11.4 g/dL (14.0-18.0); Mean Corpuscular HGB CONC 33.8 g/dL (32.0-36.0); Mean Corpuscular Volume 91.6 fl (78.0-98.0); Platelet Count 168 10x3/uL (130-400); RBC Distribution Width 13.4 % (11.5-14.5); Red Blood Cell (RBC) Count 3.68 mill/uL (4.70-6.10); White Blood Cell (WBC) Count 6.8 10x3/uL (4.8-10.8)
[2022-12-18 05:07] LABS: Anion Gap 11 mmol/L (10-20); BUN (Urea Nitrogen) 33 mg/dL (8.4-25.7); Calc. Creatinine Clearance 43 mL/min (70-130); Calcium 8.6 mg/dL (7.8-10.44); Carbon Dioxide 26 mmol/L (23-31); Chloride 102 mmol/L (98-107); Estimated GFR 42; Glucose 268 mg/dL (80-115); Sodium 135 mmol/L (136-145)
[2022-12-18 05:30] VITALS: TEMP 97.7
[2022-12-18] MEDS: HumaLOG 300 UNITS/3 ML VIAL SC PRN (06:43)
[2022-12-18 08:41] VITALS: BP 134/72
[2022-12-18] MEDS: Carvedilol 6.25 MG TAB PO SCH (08:42)
[2022-12-18] MEDS: Aspirin Chewable 81 MG TAB PO SCH (08:42)
[2022-12-18] MEDS: Sacubitril 49 MG/Valsartan 51 MG TABLET PO SCH (08:43)
[2022-12-18] MEDS ORDERED: Empagliflozin 10 MG TAB PO SCH (09:00)
== END 2022-12-18 10:50 ==
LOC: EEVIPCON 14:29 → ERS 14:29 → ERHOLD 17:37 → INTOOBSV 17:37 → 2NO 22:07
PROVIDERS: ADMIT Student in an Organized Health Care Education/Training Program; ATTEND Hospitalist
DX: R07.89 Other chest pain (principal); I25.5 Ischemic cardiomyopathy; I11.0 Hypertensive heart disease with heart failure; I50.20 Unspecified systolic (congestive) heart failure; E78.5 Hyperlipidemia, unspecified; N17.9 Acute kidney failure, unspecified; E11.65 Type 2 diabetes mellitus with hyperglycemia; I21.4 Non-ST elevation (NSTEMI) myocardial infarction; F41.9 Anxiety disorder, unspecified; I25.810 Atherosclerosis of coronary artery bypass graft(s) without angina pectoris; Z86.73 Personal history of transient ischemic attack (TIA), and cerebral infarction without residual deficits; Z79.82 Long term (current) use of aspirin; Z79.899 Other long term (current) drug therapy; Z87.891 Personal history of nicotine dependence; Z79.84 Long term (current) use of oral hypoglycemic drugs; Z90.49 Acquired absence of other specified parts of digestive tract
CPT/HCPCS: 36415; 36416; 71045; 80048; 80053; 80061; 83036; 83690; 83880; 84484; 85025; 93005; 93306; 94760; 96372; G0378; J1650; J1815; J7030

== ENCOUNTER 2022-12-29 08:04 | Inpatient (IN) | payer SELFPAY ==
[2022-12-29] MEDS ORDERED: Heparin 25,000 UNITS/D5W 500 ml bag ONE (08:15)
[2022-12-29] MEDS ORDERED: EPINEPHrine 1 MG/10 ML Abboject SYRINGE ONE ×2 (08:15→09:43)
[2022-12-29] MEDS ORDERED: Heparin 10,000 UNITS/ 10 ML VIAL ONE ×2 (08:15→09:41)
[2022-12-29] MEDS ORDERED: Rocuronium Bromide 10 MG/ML (10ML VIAL) ONE (08:15)
[2022-12-29] MEDS ORDERED: Nitroglycerin 50 MG/250 ML BOT 0 ML ONE (08:18)
[2022-12-29] MEDS ORDERED: Nitroglycerin 50 MG/250 ML BOT 250 ML IVPB SCH (08:30)
[2022-12-29 08:39] LABS: #Monocytes 0.9 thou/uL (0.11-0.59); %Basophils 0.3 % (0.0-1.0); %Eosinophils 0.1 % (0.0-10.0); %Lymphocytes 4.9 % (21.0-51.0); %Monocytes 6.8 % (0.0-10.0); %Neutrophils 87.5 % (42.0-75.0); Hematocrit 36.5 % (42.0-52.0); Hemoglobin 12.3 g/dL (14.0-18.0); Mean Corpuscular HGB CONC 33.7 g/dL (32.0-36.0); Mean Corpuscular Hemoglobin 31.1 pg (27.0-31.0); Mean Corpuscular Volume 92.4 fl (78.0-98.0); Mean Platelet Volume 11.1 fL (7.4-10.4); Platelet Count 212 10x3/uL (130-400); RBC Distribution Width 13.6 % (11.5-14.5); Red Blood Cell (RBC) Count 3.95 mill/uL (4.70-6.10); White Blood Cell (WBC) Count 13.7 10x3/uL (4.8-10.8)
[2022-12-29] MEDS ORDERED: Cefepime 2 GM VIAL ONE (08:49)
[2022-12-29] MEDS ORDERED: Sodium Chloride 0.9% 100 ML ONE (08:49)
[2022-12-29] MEDS ORDERED: Vancomycin 1 GM/200 ML (FROZEN) BAG ONE (08:49)
[2022-12-29 09:02] LABS: ALT (SGPT) 24 U/L (8-55); AST (SGOT) 77 U/L (5-34); Albumin 4.5 g/dL (3.4-4.8); Alkaline Phosphatase 116 U/L (40-110); Anion Gap 18 mmol/L (10-20); BUN (Urea Nitrogen) 26 mg/dL (8.4-25.7); Bilirubin, Total 1.4 mg/dL (0.2-1.2); Calc. Creatinine Clearance 0 mL/min (70-130); Carbon Dioxide 21 mmol/L (23-31); Chloride 102 mmol/L (98-107); Estimated GFR 44; Globulin 2.7 g/dL (2.4-3.5); Lipase Less than 4 U/L (8-78); Potassium 4.8 mmol/L (3.5-5.1); Protein, Total 7.2 g/dL (5.8-8.1); Sodium 136 mmol/L (136-145)
[2022-12-29 09:07] LABS: Glucose 488 mg/dL (80-115)
[2022-12-29 09:14] LABS: Troponin I 11.855 ng/mL (< 0.028)
[2022-12-29] MEDS ORDERED: Morphine 4 MG/ML VIAL ONE (09:19)
[2022-12-29] MEDS ORDERED: Amiodarone 150 MG/3 ML VIAL ONE ×2 (09:20→10:52)
[2022-12-29] MEDS ORDERED: NOREPINEPHRINE 8 MG/250 ML-D5W 250 ML ONE ×2 (09:28→09:36)
[2022-12-29] MEDS ORDERED: Adenosine 6 MG/2 ML VIAL ONE (09:41)
[2022-12-29] MEDS ORDERED: Verapamil 5 MG/2 ML VIAL ONE (09:41)
[2022-12-29] MEDS ORDERED: Lidocaine 1% (PF) 30 ML VIAL ONE (09:41)
[2022-12-29] MEDS ORDERED: Nitroglycerin 50 MG/250 ML BOT 250 ML ONE (09:42)
[2022-12-29] MEDS ORDERED: PHENYLEPHRINE-NS 100 MCG/ML 10 ML SYRINGE ONE (09:43)
[2022-12-29] MEDS ORDERED: Fentanyl BOLUS 250 ML IVPB PRN ×2 (09:45→11:00)
[2022-12-29] MEDS ORDERED: Fentanyl CADD 100 ML IV SCH ×2 (09:45→11:00)
[2022-12-29 09:47] LABS: INR-International Normal Ratio 1.1; Prothrombin Time 14.4 sec (12.0-14.7)
[2022-12-29 09:48] LABS: PTT 32.5 sec (22.9-36.1)
[2022-12-29] MEDS ORDERED: Atropine Sulfate 1 mg/10 ml Syringe ONE (09:49)
[2022-12-29] MEDS ORDERED: Acetaminophen 325 MG TAB PO PRN (10:35)
[2022-12-29] MEDS ORDERED: Ventilator Sedation Protocol 1 EACH FS SCH (10:35)
[2022-12-29] MEDS ORDERED: Senokot S 8.6-50 MG TAB PO PRN (10:35)
[2022-12-29] MEDS ORDERED: Nitroglycerin 0.4 MG TAB (25 Tab Bottle) SL PRN ×2 (10:35→11:39)
[2022-12-29] MEDS ORDERED: Ondansetron PF 4 MG/2 ML Vial IVP PRN (10:35)
[2022-12-29] MEDS ORDERED: Acetaminophen 650 MG Suppository PR PRN (10:35)
[2022-12-29] MEDS ORDERED: Bisacodyl 10 MG SUPP PR PRN (10:35)
[2022-12-29] MEDS ORDERED: Dextrose 5% in Water 1,000 ML IV PRN (10:42)
[2022-12-29] MEDS ORDERED: Dextrose 50% Abboject 50 ML SYRINGE SLOW IVP PRN (10:42)
[2022-12-29] MEDS ORDERED: Glucagon 1 MG/ML KIT IM PRN (10:42)
[2022-12-29] MEDS ORDERED: HumaLOG 300 UNITS/3 ML VIAL SC PRN ×2 (10:42)
[2022-12-29] MEDS ORDERED: NOREPINEPHRINE 8 MG/250 ML-D5W 250 ML IVPB SCH (10:45)
[2022-12-29] MEDS ORDERED: Propofol BOLUS 1,000 MG/100 ML VIAL IV PRN (11:00)
[2022-12-29] MEDS ORDERED: Morphine 2 MG/ML VIAL SLOW IVP PRN (11:00)
[2022-12-29] MEDS ORDERED: Lorazepam 2 MG/ML VIAL SLOW IVP PRN ×2 (11:00→13:15)
[2022-12-29] MEDS ORDERED: Propofol 1,000 MG/100 ML VIAL IV PRN (11:00)
[2022-12-29] MEDS ORDERED: DISCONTINUE PREVIOUS NARCOTIC PAIN MEDICATIONS AND BENZODIAZEPINES FS SCH (11:00)
[2022-12-29 11:23] VITALS: BP 99/51
[2022-12-29] MEDS ORDERED: Iopamidol 370 76% 100 ML VIAL ONE (11:29)
[2022-12-29 11:37] LABS: Base Excess (BEa) -23.1 mEq/L (-2.0 to +3.0); CO2 Tension 43.8 mmHg (35.0-45.0); Calcium, Ionized (arterial) 1.15 mmol/L (1.12-1.30); Carboxyhemoglobin (COHb) 1.1 gm% (0.0-3.0); Hematocrit-ABG 40 % (42.0-52.0); Hemoglobin (Hb) 13.6 g/dL (14.0-18.0); O2 Tension (PaO2), arterial 68.1 mmHg (> 80.0)
[2022-12-29 11:38] LABS: Puncture Site Arterial Line
[2022-12-29] MEDS ORDERED: Acetaminophen/Codeine 30-300mg Tablet PO PRN ×2 (11:39)
[2022-12-29] MEDS ORDERED: Sodium Chloride 0.9% 200 ML IV PRN (11:39)
[2022-12-29] MEDS ORDERED: Sodium Chloride 0.9% 1,000 ML IV SCH (11:45)
[2022-12-29 11:50] VITALS: TEMP 97.5; BMI 24.2
[2022-12-29] MEDS ORDERED: Iopamidol-370 76% 500 ML MDV (1 ML CHARGE) ONE (12:00)
[2022-12-29] MEDS ORDERED: Morphine 4 MG/ML VIAL SLOW IVP PRN (13:14)
[2022-12-29] MEDS ORDERED: Cefepime 2 GM in Sodium Chloride 0.9% 100 ML IVPB SCH ×2 (14:00→22:00)
[2022-12-29] MEDS ORDERED: Famotidine/PF 20 mg/2ml Vial SLOW IVP SCH ×2 (21:00)
[2022-12-30] MEDS ORDERED: Vancomycin 1 GM in Premix 1 BAG IVPB SCH (09:00)
[2022-12-30] MEDS ORDERED: Aspirin 300 MG Suppository PR SCH (09:00)
== END 2022-12-29 13:18 | disposition expired ==
LOC: ERS 08:04 → SUATTDRO 09:50 → CCL 09:50 → CCU 11:15
PROVIDERS: ADMIT Internal Medicine; ATTEND Internal Medicine
PROC: 4A023N7 Measurement of Cardiac Sampling and Pressure, Left Heart, Percutaneous Approach (ICD-10-PCS; principal; 2022-12-29)
PROC: B2111ZZ Fluoroscopy of Multiple Coronary Arteries using Low Osmolar Contrast (ICD-10-PCS; 2022-12-29)
PROC: B2181ZZ Fluoroscopy of Left Internal Mammary Bypass Graft using Low Osmolar Contrast (ICD-10-PCS; 2022-12-29)
PROC: B2131ZZ Fluoroscopy of Multiple Coronary Artery Bypass Grafts using Low Osmolar Contrast (ICD-10-PCS; 2022-12-29)
PROC: B4101ZZ Fluoroscopy of Abdominal Aorta using Low Osmolar Contrast (ICD-10-PCS; 2022-12-29)
PROC: B2151ZZ Fluoroscopy of Left Heart using Low Osmolar Contrast (ICD-10-PCS; 2022-12-29)
PROC: 06HY33Z Insertion of Infusion Device into Lower Vein, Percutaneous Approach (ICD-10-PCS; 2022-12-29)
PROC: 4A033R1 Measurement of Arterial Saturation, Peripheral, Percutaneous Approach (ICD-10-PCS; 2022-12-29)
PROC: 3E033XZ Introduction of Vasopressor into Peripheral Vein, Percutaneous Approach (ICD-10-PCS; 2022-12-29)
PROC: 5A1935Z Respiratory Ventilation, Less than 24 Consecutive Hours (ICD-10-PCS; 2022-12-29)
PROC: 0BH17EZ Insertion of Endotracheal Airway into Trachea, Via Natural or Artificial Opening (ICD-10-PCS; 2022-12-29)
DX: I21.3 ST elevation (STEMI) myocardial infarction of unspecified site (principal); J96.90 Respiratory failure, unspecified, unspecified whether with hypoxia or hypercapnia; I44.7 Left bundle-branch block, unspecified; R57.0 Cardiogenic shock; Z51.5 Encounter for palliative care; Z66 Do not resuscitate; I25.10 Atherosclerotic heart disease of native coronary artery without angina pectoris; I25.5 Ischemic cardiomyopathy; N18.9 Chronic kidney disease, unspecified; F41.9 Anxiety disorder, unspecified; I73.9 Peripheral vascular disease, unspecified; I12.9 Hypertensive chronic kidney disease with stage 1 through stage 4 chronic kidney disease, or unspecified chronic kidney disease; E11.22 Type 2 diabetes mellitus with diabetic chronic kidney disease; R00.1 Bradycardia, unspecified; E11.51 Type 2 diabetes mellitus with diabetic peripheral angiopathy without gangrene; Z87.440 Personal history of urinary (tract) infections; Z90.49 Acquired absence of other specified parts of digestive tract; Z87.448 Personal history of other diseases of urinary system; Z95.1 Presence of aortocoronary bypass graft; Z79.899 Other long term (current) drug therapy; Z79.82 Long term (current) use of aspirin; Z79.84 Long term (current) use of oral hypoglycemic drugs; Z87.891 Personal history of nicotine dependence; Z86.73 Personal history of transient ischemic attack (TIA), and cerebral infarction without residual deficits; Z82.49 Family history of ischemic heart disease and other diseases of the circulatory system
CPT/HCPCS: 36415; 36556; 71045; 71275; 80053; 82805; 83605; 83690; 83880; 84484; 85025; 85347; 85610; 85730; 87040; 93005; 93459; 94002; C1751; C1769; C1894; J0153; J0171; J0282; J0461; J0692; J1644; J2001; J2060; J2270; J2272; J3010; J3370-JW; J3490; Q9967